=== PATIENT | female | born 1995 | race African-American/Black ===

== ENCOUNTER → 2022-05-03 12:35 | Observation (INO) ==
[2022-05-03 12:00] LABS: Amorphous Sediment,Urine Few per hpf (None-Few); Bacteria,Urine Few per hpf (None-Few); Bilirubin,Urine Negative (Negative); Blood,Urine Large (Negative); Clarity,Urine Turbid (Clear); Color,Urine Yellow (Yellow); Glucose,Urine (UA) Normal (Normal); Ketones,Urine Negative (Negative); Leukocyte Esterase,Urine Large (Negative); Mucus,Urine Few per lpf (None-Few); Nitrite,Urine Negative (Negative); Protein,Urine Trace mg/dL (Neg-Trace); RBC,Urine 0-3 per hpf (0-3); Specific Gravity,Urine 1.013 (1.010-1.025); Squamous Epithelial Cell,Urine Moderate per hpf (None-Few); Transitional Epi Cells,Urine Few per hpf (None-Few); WBC,Urine 15-30 per hpf (0-3)
== END | disposition home or self-care (01) ==
LOC: 1NENULAB
PROVIDERS: ADMIT Obstetrics & Gynecology; ATTEND Obstetrics & Gynecology

== ENCOUNTER 2022-05-20 19:51 | Inpatient (IN) ==
[2022-05-20 19:44] LABS: Basophils % 0.2 %; Hematocrit 37.2 % (35.3-44.9); Hemoglobin 12.3 g/dL (11.5-15.4); Immature Granulocytes % 0.4 % (0-4); Lymphocytes # 1.5 K/mcL (0.6-4.6); Lymphocytes % 15.9 %; Mean Corpuscular HGB Conc 33.1 g/dL (31.6-35.5); Mean Corpuscular Hemoglobin 32.3 pg (28.0-33.3); Mean Corpuscular Volume 97.6 fL (83.0-100.0); Neutrophils # 7.1 K/mcL (1.6-8.9); Platelet Count 171 K/mcL (140-400); Red Blood Count 3.81 M/mcL (3.82-4.97); Red Cell Distribution Width 12.4 % (11.5-14.5); Segmented Neutrophils % 73.5 %; White Blood Count 9.7 K/mcL (4.3-11.1)
[~2022-05-20 19:51] MED LIST: *HR* Nalbuphine 10 MG/ML AMPUL IV PRN; Betamethasone Acet/SodPhos 30 MG/5 ML VIAL IM SCH; Famotidine 20 MG/2 ML VIAL IVP PRN; Metoclopramide 10 MG/2 ML VIAL IVP PRN; Naloxone 0.4 MG/ML INJ IVP PRN; Penicillin G Potassium 5,000,000 UNIT in 0.9 % Sodium Chloride Mini Bag 100 ML IVPB ONE; Ringers Solution, Lactated 1,000 ML IVC ONE; Ringers Solution, Lactated 1,000 ML IVC SCH; Ringers Solution, Lactated 1,000 ML ONE
[2022-05-20] MEDS ORDERED: Penicillin G Potassium 2,500,000 UNIT/105 ML MLS IVPB SCH (23:00)
[2022-05-21] MEDS ORDERED: EPHEDrine 50 MG/ML VIAL IVP PRN (00:03)
[2022-05-21] MEDS ORDERED: Epidural Premix (fent/bupiv) 110 ML EP ONE (00:08)
[2022-05-21] MEDS ORDERED: Epidural Premix (fent/bupiv) 110 ML EP SCH (00:15)
[2022-05-21] MEDS ORDERED: Oxytocin 30 UNIT/503 ML BAG IVC ONE (03:15)
[2022-05-21] MEDS ORDERED: Lanolin 7 G OINT...G. TP PRN (06:29)
[2022-05-21] MEDS ORDERED: OXYTOCIN/RINGERS LACTATE 10 UNIT/166.6 ML BAG IVC ONE (06:29)
[2022-05-21] MEDS ORDERED: Benzocaine/Menthol 56 GM AEROSOL SPRAY TP PRN (06:29)
[2022-05-21] MEDS ORDERED: Oxytocin 30 UNIT/503 ML BAG IVC SCH (06:29)
[2022-05-21] MEDS ORDERED: Ondansetron ODT 4 MG TAB.RAPDIS SL PRN (06:29)
[2022-05-21] MEDS: Acetaminophen 325 MG TABLET PO SCH ×3 (09:04→20:05)
[2022-05-21] MEDS: Prenatal Vit/FA 1 EACH TABLET PO SCH (09:05)
[2022-05-21] MEDS: Ibuprofen 600 MG TABLET PO SCH ×3 (09:05→20:06)
[2022-05-21 20:55] VITALS: TEMP 98.4; O2SAT 99
[2022-05-22] MEDS: Acetaminophen 325 MG TABLET PO SCH ×2 (04:28→08:03)
[2022-05-22] MEDS: Ibuprofen 600 MG TABLET PO SCH ×2 (04:28→08:02)
[2022-05-22 04:54] VITALS: BP 101/64; PULSE 90
[2022-05-22] MEDS: Prenatal Vit/FA 1 EACH TABLET PO SCH (08:03)
== END 2022-05-22 17:20 | disposition home or self-care (01) | DRG 807 ==
LOC: 1NENULAB → 1NENUOBS 05-21 06:29
PROVIDERS: ADMIT Obstetrics & Gynecology; ATTEND Obstetrics & Gynecology